=== PATIENT | female | born 1995 | race Caucasian/White ===

== ENCOUNTER 2016-09-15 16:45 | Inpatient (IN) | payer MEDICAID ==
[2016-09-15 17:15] VITALS: BMI 31.0
[2016-09-15] MEDS ORDERED: Magnesium Hydroxide Susp 30 ml UD PO PRN (17:31)
[2016-09-15] MEDS ORDERED: Alum-Mag Hydrox-Simethicone Susp (30 mL) PO PRN (17:31)
--- NOTE | 2016-09-15 18:51 | PCM.BM ---
<Roseanne Alvarado - Last Filed: 09/15/16 18:48> Treatment Plan Problems - Problems identified on initial assessmt SUICIDAL IDEATION Date Initiated: 09/15/16 Time Initiated: 18:00 Assessment reference: NA Status: Active Priority: 1 SELF HARM Date Initiated: 09/15/16 Time Initiated: 18:00 Assessment reference: NA Status: Active Priority: 2 HELPLESS,HOPELESS Date Initiated: 09/15/16 Time Initiated: 18:00 Assessment reference: NA Status: Active WORTHLESS Date Initiated: 09/15/16 Time Initiated: 18:00 Assessment reference: NA Status: Active Priority: 4 ALTERED SLEEP Date Initiated: 09/15/16 Time Initiated: 18:00 Assessment reference: NA Status: Active Priority: 5 ANXIETY Date Initiated: 09/15/16 Time Initiated: 18:00 Assessment reference: NA Status: Active Priority: 6 INEFFECTIVE COPING SKILLS Date Initiated: 09/15/16 Time Initiated: 18:00 Assessment reference: NA Status: Active Priority: 7 Treatment assets and liabiliti Patient Assests: cooperative, ADL independent, physically healthy, cognitively intact Patient Liabilities: financial problems, substance abuse - Milieu Protocol Maintain good personal hygiene: daily Encourage regular showers, daily Remind patient to perform daily oral care, daily Assist patient to perform ADL's Maintain personal safety: every shift Educate patient to report safety concerns to staff, every shift Monitor environment for contraband/sharps Medication safety: Monitor for expected outcome, potential side effects: every shift, Assess barriers to learning: every shift, Assess readiness for medication education: every shift Family Contact - Goals for Treatment Patient goals for treatment: TO GO BACK TO SCHOOL Discharge/Continuing Care - Education Needs Education Needs: Patient Medication, Patient Diagnosis/Disease Process, Patient Coping Skills, Patient Anger Management skills, Patient Community resources, Patient Activities of Daily Living, Patient Nutrition, Patient Health Practices/ Safety, Patient Personal Hygiene/Grooming, Patient Aftercare Safety Plan - Discharge Discharge Criteria: Tolerates medication w/o severe side effects, Free of Suicidal thoughts, Free of agitation, Normal sleep pattern, Reduction of target symptoms Discharge to:: Home - Treatment Team Participation Was Patient/Family/SO present at Treatment Team Meeting: Yes <Didier Flanagan - Last Filed: 09/17/16 10:45> - Diagnosis (1) Paranoia Status: Acute Interventions: 09/17/16 10:44 * Assess/adjust medications daily and /or as needed * Educate patient regarding benefits, side effects and risks of prescribed medications * See patient on an individual basis 7x/week to assess * (2) Substance abuse Status: Chronic Interventions: 09/17/16 10:45 * Assess 7x/week regarding severity of withdrawal * Educate regarding risks, benefits, side effects and alternatives of medications *
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
[2016-09-17 07:22] LABS: CHOLESTEROL 134 mg/dL (130-200); GLUCOSE,FASTING 87 mg/dL (65-110)
[2016-09-17 07:39] VITALS: BP 106/52; PULSE 67; RESP 20; TEMP 98.1
[2016-09-17 08:23] LABS: FREE T4 0.74 ng/dL (0.78-2.19)
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
== END 2016-09-17 15:21 | disposition home or self-care (01) | DRG 428 ==
LOC: PSYC 16:45
PROVIDERS: ADMIT Psychiatry & Neurology Addiction Medicine; ATTEND Psychiatry & Neurology Addiction Medicine
PROC: GZ3ZZZZ Medication Management (ICD-10-PCS; principal; 2016-09-15)
DX: F60.3 Borderline personality disorder (principal); F22 Delusional disorders; R45.851 Suicidal ideations; F31.9 Bipolar disorder, unspecified; F12.10 Cannabis abuse, uncomplicated

== ENCOUNTER 2016-12-19 00:11 | Emergency (ER) | payer MEDICAID ==
[2016-12-19 00:11] VITALS: BMI 31.2
[2016-12-19 00:33] VITALS: BP 109/63; PULSE 96; RESP 18; TEMP 98.7; O2SAT 97
--- NOTE | 2016-12-19 01:28 | ED PDOC ---
Arrival/HPI - General Chief Complaint: Lower Extremity Problem/Injury Time Seen by Provider: 12/19/16 01:23 Historian: Patient - History of Present Illness Narrative History of Present Illness (Text): 12/19/16 01:24 This 21 yo female presents to this ED c/o right lateral ankle pain x 2 hours. Patient stated she tripped on a pothole, causing her ankle to twist. Denies calf pain, denies proximal fibular pain, denies knee pain. Denies other complains. Time/Duration: Other (2 hours) Symptom Onset: Sudden Quality: Aching Context: Home Past Medical History - Provider Review Nursing Documentation Reviewed: Yes - Cardiac Hx Cardiac Disorders: No - Pulmonary Hx Respiratory Disorders: No - Neurological Hx Neurological Disorder: No - HEENT Hx HEENT Disorder: No - Renal Hx Renal Disorder: No - Endocrine/Metabolic Hx Endocrine Disorders: No - Hematological/Oncological Hx Blood Disorders: No - Integumentary Hx Dermatological Disorder: No - Musculoskeletal/Rheumatological Hx Falls: No - Gastrointestinal Hx Gastrointestinal Disorders: No - Genitourinary/Gynecological Hx Genitourinary Disorders: No - Psychiatric Hx Bipolar Disorder: Yes Hx Substance Use: No - Anesthesia Hx Anesthesia: No Family/Social History - Physician Review Nursing Documentation Reviewed: Yes Family/Social History: Other (non-contributory) Smoking Status: Never Smoked Hx Alcohol Use: No Hx Substance Use: No Allergies/Home Meds Allergies/Adverse Reactions: Allergies No Known Allergies Allergy (Verified 12/19/16 00:30) Home Medications: Home Meds Medication Instructions Recorded Confirmed risperiDONE [RisperDAL] 0.75 mg PO HS 12/19/16 12/19/16 Review of Systems - Review of Systems Constitutional: Normal. absent: Fatigue, Weight Change, Fevers, Night Sweats Eyes: Normal ENT: Normal Respiratory: Normal Cardiovascular: Normal Gastrointestinal: Normal Genitourinary Female: Normal Musculoskeletal: Other (ankle pain) Skin: Normal Neurological: Normal Endocrine: Normal Hemo/Lymphatic: Normal Psychiatric: Normal Physical Exam Vital Signs Temp Pulse Resp BP Pulse Ox 12/19/16 00:33 98.7 F 96 H 18 109/63 97 Temperature: Afebrile Blood Pressure: Normal Pulse: Regular Respiratory Rate: Normal Appearance: Positive for: Well-Appearing, Non-Toxic, Comfortable Pain Distress: None Mental Status: Positive for: Alert and Oriented X 3 - Systems Exam Head: Present: Atraumatic, Normocephalic Pupils: Present: PERRL Extroacular Muscles: Present: EOMI Conjunctiva: Present: Normal Mouth: Present: Moist Mucous Membranes Neck: Present: Normal Range of Motion Respiratory/Chest: Present: Clear to Auscultation, Good Air Exchange. No: Respiratory Distress, Accessory Muscle Use Cardiovascular: Present: Regular Rate and Rhythm, Normal S1, S2. No: Murmurs Abdomen: Present: Normal Bowel Sounds. No: Tenderness, Distention, Peritoneal Signs Back: Present: Normal Inspection Upper Extremity: Present: Normal Inspection. No: Cyanosis, Edema Lower Extremity: Present: NORMAL PULSES, Tenderness ((+) right lateral malleoulus is tender and swelling on palpation. Boo test is negative. No calf tenderness. No posterior ankle tenderness. No deformity. No tenderness on proximal fibula area. No abrasion or ecchymosis), Swelling, Neurovascularly Intact, Capillary Refill < 2 s. No: Edema, CALF TENDERNESS, Flaca's Sign, Deformity, Temperature Abnormalties Neurological: Present: GCS=15, CN II-XII Intact, Speech Normal, Motor Func Grossly Intact, Normal Sensory Function, Normal Cerebellar Funct Skin: Present: Warm, Dry, Normal Color. No: Rashes Psychiatric: Present: Alert, Oriented x 3, Normal Insight, Normal Concentration Medical Decision Making ED Course and Treatment: 12/19/16 01:48 Re-evaluation. Patient feels better. Discussed results and plan with patient who expresses understanding. All questions answered and there is agreement with the plan to discharge home with instructions. Patient stable for discharge. Return if symptoms persist or worsen Re-evaluation Time: 01:48 Reassessment Condition: Re-examined, Improved - RAD Interpretation Narrative RAD Interpretations (Text): 12/19/16 01:48 ankle x-rays: No fx Radiology Orders: 12/19/16 01:23 ANKLE RIGHT 3 VIEWS ROUTINE [RAD] Stat - Medication Orders Current Medication Orders: Discontinued Medications Acetaminophen (Tylenol 325mg Tab) 650 mg PO STAT STA Stop: 12/19/16 01:24 Disposition/Present on Arrival - Present on Arrival Any Indicators Present on Arrival: No History of DVT/PE: No History of Uncontrolled Diabetes: No Urinary Catheter: No History of Decub. Ulcer: No History Surgical Site Infection Following: None - Disposition Have Diagnosis and Disposition been Completed?: Yes Diagnosis: Right ankle sprain Disposition: HOME/ ROUTINE Disposition Time: 01:49 Patient Plan: Discharge Condition: GOOD Discharge Instructions (ExitCare): Ankle Sprain (ED), Crutch Instructions (ED) Additional Instructions: Call private doctor for follow up visit in 1-2 days. Keep ankle elevated, ice , rest, crutches, air cast for at least 5 days. Remove air cast at bedtime. Take medication as instructed with food. Return o emergency if symptoms worsen. Prescriptions: Ibuprofen [Motrin] 600 mg PO Q8 PRN #20 tab PRN Reason: Pain, Severe (8-10) Referrals: [facility] [Outside] - Follow up with primary [facility] [Outside] - Follow up with primary Forms: [employer] (Maltese)
--- NOTE | 2016-12-19 09:05 | RAD ---
PROCEDURE: Right Ankle Radiographs. HISTORY: pain COMPARISON: None FINDINGS: BONES: No evidence of acute displaced fracture nor dislocation. Fracture. JOINTS: Normal. No osteoarthritis. Ankle mortise maintained. Talar dome intact SOFT TISSUES: Mild -moderate soft tissue swelling overlying the lateral malleolus OTHER FINDINGS: None. IMPRESSION: No evidence of acute displaced fracture nor dislocation. Mild to moderate lateral soft tissue swelling. If symptoms persist or occult fracture suspected clinically recommend repeat radiographs in 5-10 days as most fractures should become radiographically evident in this timeframe.
== END 2016-12-19 02:07 | disposition home or self-care (01) ==
LOC: ED 00:11
DX: S93.401A Sprain of unspecified ligament of right ankle, initial encounter (principal); W01.0XXA Fall on same level from slipping, tripping and stumbling without subsequent striking against object, initial encounter